=== PATIENT | female | born 1970 | race Caucasian/White ===

== ENCOUNTER → 2017-01-09 | Outpatient (CLI) | payer OTHER ==
[~2017-01-09] MED LIST: GADOBUTROL 10 ML VIAL IVP ONE
== END ==
LOC: FIMAGING 19:27
PROVIDERS: ATTEND Internal Medicine Endocrinology, Diabetes & Metabolism
DX: R94.02 Abnormal brain scan (principal); E22.1 Hyperprolactinemia
CPT/HCPCS: A9585

== ENCOUNTER 2017-02-13 17:22 | Emergency (ER) | payer OTHER ==
[2017-02-13 17:35] VITALS: RESP 16; TEMP 97.7
--- NOTE | 2017-02-13 17:38 | EDPHY ---
H & P Stated Complaint: left anterior CP, cramping rad to shoulders, after increasing seroqual dose Time Seen by Provider: 02/13/17 17:37 - Personal History LMP (Females 10-55): 8-14 Days Ago Current Tetanus/Diphtheria Vaccine: Yes Current Tetanus Diphtheria and Acellular Pertussis (TDAP): Yes Tetanus Vaccine Date: 2014 - Medical/Surgical History Hx Asthma: No Hx Chronic Respiratory Disease: No Hx Diabetes: No Hx Cardiac Disease: No Hx Renal Disease: No Hx Cirrhosis: No Hx Alcoholism: No Hx HIV/AIDS: No Hx Splenectomy or Spleen Trauma: No Other PMH: anemia, carpal tunnel, insomnia, fibromyalgia, hypothyroid, L3-L4 buldging disc, leukocytosis, migraines, scoliosis, sleep apnea, TMJ, nerve ablations for chronic abdominal pain, occipital nerve block for migraines, photophobia, puctal plugs, adrenal insufficiency, vitamin D deficiency, - Social History Smoking Status: Never smoked Constitutional: Initial Vital Signs Temperature (C) 36.5 C 02/13/17 17:32 Heart Rate 96 02/13/17 17:32 Respiratory Rate 16 02/13/17 17:32 Blood Pressure 151/76 H 02/13/17 17:32 O2 Sat (%) 96 02/13/17 17:32 O2 Delivery Mode Room Air Allergies/Adverse Reactions: hydrocodone Allergy (Severe, Verified 06/09/15 13:12) Rash peanut Allergy (Severe, Verified 06/09/15 13:12) Hives Penicillins Allergy (Severe, Verified 06/09/15 13:12) Rash gluten Allergy (Intermediate, Verified 06/09/15 13:12) clarithromycin Allergy (Verified 06/09/15 13:12) Home Medications: Medication Instructions Recorded Bepreve 1.5% 1 drop EACHEYE BID 11/08/14 Diclofenac Sodium 1% [Voltaren Gel 1 everette TP QID PRN 11/08/14 (*)] Gabapentin Enacarbil [Horizant] 600 mg PO TID 11/08/14 HYDROmorphone HCL [Dilaudid 4 mg 4 mg PO Q4 PRN 11/08/14 (*)] HYDROmorphone HCL [Dilaudid 4 mg 8 mg PO Q6 PRN 11/08/14 (*)] Herbals/Supplements -Info Only 1 ea PO DAILY 11/08/14 Ketorolac Tromethamine [Toradol 30 30 mg IVP WESA@09 11/08/14 mg/ml Inj (*)] Omeprazole [Prilosec 20 mg] 20 mg PO BID 11/08/14 Promethazine HCl [Phenergan 25mg 37.5 mg PO DAILY 11/08/14 (*)] cycloSPORINE 0.05% [Restasis Opht 1 drop EACHEYE BID 11/08/14 Drops(*)] Ibuprofen [Motrin (*)] 600 mg PO TID PRN #0 tab 11/09/14 ACTEMRA 05/03/15 Amitiza 05/03/15 Botox 05/03/15 Dymista Nasal [place] 05/03/15 Fetzima 05/03/15 Klor-Con 05/03/15 Ximena 06/09/15 Furosemide [Lasix] 20 mg PO DAILY #6 tab 06/09/15 Nucynta 50 MG (RX) 06/09/15 Potassium Cl [Klor-Con 20 meq (*)] 20 meq PO DAILY #5 tab 06/09/15 Restasis Opht Drops(RX) 06/09/15 SAVELLA 06/09/15 Ibuprofen [Motrin] 800 mg PO Q8 #20 tab 02/13/17 Medical Decision Making - Diagnostics Imaging Results: Imaging Impressions Chest X-Ray 02/13/17 17:57 Impression: No significant radiographic abnormality. Specifically, a source for chest pain is not identified. Imaging: I viewed and interpreted images myself ED Course/Re-evaluation: CHIEF COMPLAINT: Chest pain, elevated BP HISTORY OF PRESENT ILLNESS: The patient is a 46 y/o female complaining of chest pain since Sunday evening, 2 days ago, worsening today and associated with elevated BP. She has a history of several chronic pain and rheumatologic issues. She had an extensive cardiac work up 2 years ago for similar symptoms including a nuclear stress test and they ultimately attributed her pain to an inflammatory rheumatologic process. She describes her pain as "deep" and also "tight, cramping pain in the breast radiating out to my left shoulder" with some milder radiation to her right shoulder. She complains of additional fatigue , but denies significant dyspnea, fever, or other new symptoms. She was seen at the [facility] earlier today and referred to urgent care for elevated BP they thought might be caused by recently increasing her Seroquel dose. REVIEW OF SYSTEMS: A 10 point review of systems was performed and is negative with the exception of the elements mentioned in the history of present illness. PHYSICAL EXAM: HR, BP, O2 Sat, RR. Temp noted General Appearance: Alert, well hydrated, appropriate, and non-toxic appearing. Head: Atraumatic without scalp tenderness or obvious injury Eyes: Pupils equal, round, reactive to light and accommodation, EOMI, no trauma , no injection. Ears: Clear bilaterally, no perforation, normal landmarks Nose: Atraumatic, no rhinorrhea, clear. Throat: There is no erythema or exudates, no lesions, normal tonsils, mucus membranes moist. Neck: Supple, nontender, no lymphadenopathy. Respiratory: No retractions, no distress, no wheezes, and no accessory muscle use. Lungs are clear to auscultation bilaterally. Cardiovascular: Regular rate and rhythm, no murmurs, rubs, or gallops. Good capillary refill all extremities. Gastrointestinal: Abdomen is soft, nontender, non-distended, no masses, no rebound, no guarding, no peritoneal signs. Musculoskeletal: Normal active ROM of all extremities, atraumatic. Exquisite tenderness over left breast tissue. Neurological: Alert, appropriate, and interactive. Nonfocal neuro exam. Skin: No rashes, good turgor, no nodules on palpation. Past medical history: Chronic inflammatory condition poorly characterized, fibromyalgia, migraines, scoliosis, recurrent chest and abdominal pain, continuous narcotic dependency, hypothyroidism, chronic leukocytosis, MAY Past surgical history: Denies Family history: Father had CABG x4 at age 40 Social history: at bedside. Prior medical records reviewed including admission 11/08/14 for chest pain. DIAGNOSTICS/PROCEDURES/CRITICAL CARE TIME: The 12 lead EKG was interpreted by myself. Sinus rhythm. See hard copy and/or "tracemaster" electronic copy for interpretation. Chest x-ray: unremarkable DIFFERENTIAL DIAGNOSIS: The differential diagnosis for the patient's chest pain included but was not limited to costochondritis, rheumatologic process, myocardial ischemia, pulmonary embolus, chest wall pain, pleural inflammation, and pulmonary infectious causes. MEDICAL DECISION MAKING: This is a 46 y/o female with a history of chronic pain conditions presents with left upper chest tenderness worsening over the last two days. She has had extensive prior cardiac workup in the last 2 years that showed no evidence for cardiac cause of her pain. While she has a concerning family history of cardiac disease, her pain today is reproducible with palpation and consistent with prior episodes of costochondritis and other poorly characterized rheumatologic issues. We will still complete a work up to rule out cardiac causes. IV established. Labs drawn. Chest x-ray and EKG ordered. Reassessed patient and discussed work up. Labs, EKG, chest x-ray are unremarkable. Her BP is stable around 150 systolic. She will be discharged with ibuprofen and recommendation to follow up with her PCP for continued symptoms. Return precautions given. She is comfortable with this plan. - Data Points Laboratory Results: Laboratory Results 02/13/17 18:15 02/13/17 18:15 02/13/17 02/13/17 02/13/17 18:15 18:15 18:15 WBC 11.33 10^3/uL H 10^3/uL (3.80-9.50) RBC 4.43 10^6/uL 10^6/uL (4.18-5.33) Hgb 12.5 g/dL L g/dL (12.6-16.3) Hct 37.6 % L % (38.0-47.0) MCV 84.9 fL fL (81.5-99.8) MCH 28.2 pg pg (27.9-34.1) MCHC 33.2 g/dL g/dL (32.4-36.7) RDW 13.7 % % (11.5-15.2) Plt Count 355 10^3/uL 10^3/uL (150-400) MPV 9.5 fL fL (8.7-11.7) Neut % (Auto) 58.9 % % (39.3-74.2) Lymph % (Auto) 26.9 % % (15.0-45.0) [place] % (Auto) 8.3 % % (4.5-13.0) Eos % (Auto) 4.9 % % (0.6-7.6) Baso % (Auto) 0.7 % % (0.3-1.7) Nucleat RBC Rel Count 0.0 % % (0.0-0.2) Absolute Neuts (auto) 6.67 10^3/uL H 10^3/uL (1.70-6.50) Absolute Lymphs (auto) 3.05 10^3/uL H 10^3/uL (1.00-3.00) Absolute Monos (auto) 0.94 10^3/uL H 10^3/uL (0.30-0.80) Absolute Eos (auto) 0.56 10^3/uL H 10^3/uL (0.03-0.40) Absolute Basos (auto) 0.08 10^3/uL 10^3/uL (0.02-0.10) Absolute Nucleated RBC 0.00 10^3/uL 10^3/uL (0-0.01) Immature Gran % 0.3 % % (0.0-1.1) Immature Gran # 0.03 10^3/uL 10^3/uL (0.00-0.10) D-Dimer < 0.27 ug/mLFEU ug/mLFEU (0.00-0.50) Sodium 136 mEq/L mEq/L (134-144) Potassium 4.0 mEq/L mEq/L (3.5-5.2) Chloride 104 mEq/L mEq/L (97-110) Carbon Dioxide 23 mEq/l mEq/l (22-31) Anion Gap 9 mEq/L mEq/L (8-16) BUN 10 mg/dL mg/dL (7-23) Creatinine 0.8 mg/dL mg/dL (0.6-1.0) Estimated GFR > 60 Glucose 81 mg/dL mg/dL (70-100) Calcium 9.1 mg/dL mg/dL (8.5-10.4) Troponin I Pending NT-Pro-B Natriuret Pep Pending Departure - Departure Disposition: Home, Routine, Self-Care Clinical Impression: Chest wall pain Condition: Good Instructions: Chest Wall Pain (ED) Additional Instructions: Take 800mg ibuprofen every 6-8 hours for the next week. Follow up with your primary care provider for unimproved symptoms over the next week. Referrals: Isabelle Pate MD [Primary Care Provider] - As per Instructions Report Scribed for: Sin Vázquez Report Scribed by: Mikayla Mitchell Date of Report: 02/13/17 Time of Report: 18:34
[2017-02-13 18:28] LABS: % IMMATURE GRANULYOCYTES 0.3 % (0.0-1.1); ABSOLUTE IMMATURE GRANULOCYTES 0.03 10^3/uL (0.00-0.10); ADD DIFF? NO; ADD MORPH? NO; ADD SCAN? NO; ATYPICAL LYMPHOCYTE FLAG 0 (0-99); FRAGMENT RBC FLAG 0 (0-99); HEMATOCRIT 37.6 % (38.0-47.0); HEMOGLOBIN 12.5 g/dL (12.6-16.3); LEFT SHIFT FLG 0 (0-99); LIPEMIA HEMOLYSIS FLAG 80 (0-99); MEAN CELL HEMOGLOBIN 28.2 pg (27.9-34.1); MEAN CELL HEMOGLOBIN CONCENTR. 33.2 g/dL (32.4-36.7); MEAN CELL VOLUME 84.9 fL (81.5-99.8); MEAN PLATELET VOLUME 9.5 fL (8.7-11.7); PLATELET CLUMPS FLAG 0 (0-99); PLATELET COUNT 355 10^3/uL (150-400); RED BLOOD CELL COUNT 4.43 10^6/uL (4.18-5.33); RED CELL DISTRIBUTION WIDTH 13.7 % (11.5-15.2)
[2017-02-13 18:39] VITALS: BP 158/81; PULSE 86; O2SAT 98
[2017-02-13 18:41] LABS: ANION GAP 9 mEq/L (8-16); CALCIUM 9.1 mg/dL (8.5-10.4); CARBON DIOXIDE 23 mEq/l (22-31); CHLORIDE 104 mEq/L (97-110); CREATININE 0.8 mg/dL (0.6-1.0); GLOMERULAR FILTRATION RATE > 60; GLUCOSE 81 mg/dL (70-100); SODIUM 136 mEq/L (134-144)
[2017-02-13 18:54] LABS: TROPONIN I < 0.012 ng/mL (0-0.034)
== END 2017-02-13 19:24 | disposition home or self-care (01) ==
DX: R07.89 Other chest pain (principal); Z91.010 Allergy to peanuts

== ENCOUNTER 2017-06-07 17:57 | Emergency (ER) | payer OTHER ==
--- NOTE | 2017-06-07 18:18 | EDPHY ---
H & P Smoking Status: Never smoked Time Seen by Provider: 06/07/17 18:05 HPI/ROS: CHIEF COMPLAINT: Mental health evaluation HISTORY OF PRESENT ILLNESS: History from patient and . She has bipolar disorder which usually manifests itself is yovani. She was been prescribed Geodon but it was making her listless so she was prescribed Trintellix starting on Sunday. For the past couple days she has become more upset and today since 3:00 p.m. started having suicidal ideation. No plan. No actual injury or overdose. Presents voluntarily for evaluation. REVIEW OF SYSTEMS: Eye: no change in vision ENT: no sore throat Cardiac: no chest pain or syncope Pulmonary: no cough or SOB Abdomen: no vomiting, diarrhea, abdominal pain Musculoskeletal: Chronic spine pain from fibromyalgia unchanged Skin: no rash Neuro: no headache, has a history of migraines but not symptomatic right now Constitutional: no fever : no urinary symptoms A comprehensive 10 point review of systems is otherwise negative aside from elements mentioned in the history of present illness. PAST MEDICAL HISTORY: Includes Migraines, fibromyalgia, bipolar disorder. Social history: No tobacco or alcohol, , here with . General Appearance: Alert and conversant, cooperative. Eyes: No scleral icterus. Extraocular motion intact. ENT, Mouth: Normal mucous membranes. Respiratory: Normal respiratory effort, breath sounds equal, lungs are clear to auscultation. Cardiovascular: Regular rate and rhythm. Gastrointestinal: Abdomen is soft and non tender. Neurological: Alert and oriented x3. Normally conversant. Face symmetric, normal movement and sensation in all extremities. Skin: Warm and dry, no rashes. Musculoskeletal: No peripheral edema and no joint swelling. Psychiatric: Tearful, admits to suicidal ideation but does not have a plan, contracts for safety. Emergency Department course/MDM: Planning for screening psychiatric labs and psychiatric evaluation. She says that she feels like her "mind has been hijacked and I am a passenger. " 2100: Signed out to [facility] with evaluation in progress. (Ken Reyes) Constitutional: Initial Vital Signs Temperature (C) 37.0 C 06/07/17 18:00 Heart Rate 107 H 06/07/17 18:00 Respiratory Rate 16 06/07/17 18:00 Blood Pressure 178/85 H 06/07/17 18:00 O2 Sat (%) 98 06/07/17 18:00 O2 Delivery Mode Room Air Allergies/Adverse Reactions: hydrocodone Allergy (Severe, Verified 06/09/15 13:12) Rash peanut Allergy (Severe, Verified 06/09/15 13:12) Hives Penicillins Allergy (Severe, Verified 06/09/15 13:12) Rash gluten Allergy (Intermediate, Verified 06/09/15 13:12) clarithromycin Allergy (Verified 06/09/15 13:12) lamotrigine Allergy (Verified 06/07/17 23:58) lisinopril Allergy (Verified 06/07/17 23:58) nut - unspecified Allergy (Verified 06/07/17 23:58) Home Medications: Medication Instructions Recorded Herbals/Supplements -Info Only 1 ea PO DAILY 11/08/14 Omeprazole [Prilosec 20 mg] 20 mg PO DAILY 11/08/14 Potassium Cl [Klor-Con 20 meq (*)] 20 meq PO DAILY #5 tab 06/09/15 .Actemra 126 mg INJ .BI WEEKLY 06/07/17 Azelastine/Fluticasone [Dymista 1 spray NS BID 06/07/17 Nasal [place]] Benztropine Mesylate [Cogentin 0.5 mg PO HS 06/07/17 (RX)] Benztropine Mesylate [Cogentin 1 mg PO DAILY 06/07/17 (RX)] Clindamycin Phos/Benzoyl Perox 1 everette TP BID 06/07/17 [Clindamycin-Benzoyl Perox Gel] Dexamethasone 0.1% [Dexamethasone 1 - 2 drops EACHEAR PRN PRN 06/07/17 0.1% (*)] Diclofenac Sodium 1% [Voltaren Gel 8 gm TP QID 06/07/17 (*)] Gabapentin Enacarbil [Horizant] 1,800 mg PO HS 06/07/17 Ketorolac Tromethamine [Toradol 30 30 mg INJ .UP TO TWICE WEEKLY PRN 06/07/17 mg/ml Inj (*)] Naproxen Sodium [Aleve 220 MG (*)] 4 tab PO .2-3 X WEEKLY PRN 06/07/17 Prazosin HCl [Minipress] 4 mg PO HS 06/07/17 Promethazine HCl [Phenergan 25mg 1.5 tab PO DAILY 06/07/17 (*)] Sumatriptan Succinate [Zembrace 3 mg SQ PRN PRN 06/07/17 [place]] Tapentadol HCl [Nucynta] 100 mg PO Q6 06/07/17 Ziprasidone HCl [Geodon 20MG (*)] 20 mg PO BID 06/07/17 amLODIPine BESYLATE [Norvasc 5 mg 5 mg PO DAILY 06/07/17 (*)] busPIRone [Buspar (*)] 5 mg PO TID 06/07/17 Medical Decision Making ED Course/Re-evaluation: 0558AM: Patient has been accepted at [facility] by Dr. Hand, EMTALA filled out. Appropriate transfer will be set up. (Sandeep Zhang) Other Provider: I assumed care of this patient from Dr. Reyes at 9:00 p.m.. I was contacted by the mental health team at 10:00 p.m.. She is being placed on a mental health M1 hold, which I signed in conjunction with the blood bank coordinator. Placement is being sought. Her care will be transferred to Dr. Zhang at 11:00 p.m.. Patient requested Toradol for her abdominal migraines. She was given an injection of intramuscular Toradol. (Tianna Handy) - Data Points Laboratory Results: Laboratory Results 06/07/17 18:20 06/07/17 18:20 06/07/17 06/07/17 06/07/17 18:20 18:20 18:20 WBC RBC Hgb Hct MCV MCH MCHC RDW Plt Count MPV Neut % (Auto) Lymph % (Auto) [place] % (Auto) Eos % (Auto) Baso % (Auto) Nucleat RBC Rel Count Absolute Neuts (auto) Absolute Lymphs (auto) Absolute Monos (auto) Absolute Eos (auto) Absolute Basos (auto) Absolute Nucleated RBC Immature Gran % Immature Gran # Sodium 140 mEq/L mEq/L (134-144) Potassium 4.3 mEq/L mEq/L (3.5-5.2) Chloride 104 mEq/L mEq/L (97-110) Carbon Dioxide 22 mEq/l mEq/l (22-31) Anion Gap 14 mEq/L mEq/L (8-16) BUN 14 mg/dL mg/dL (7-23) Creatinine 0.9 mg/dL mg/dL (0.6-1.0) Estimated GFR > 60 Glucose 107 mg/dL H mg/dL (70-100) Calcium 9.6 mg/dL mg/dL (8.5-10.4) Beta HCG, Qual NEGATIVE Salicylates < 1.0 mg/dL L mg/dL (2.0-20.0) Urine Opiates Screen NEGATIVE (NEGATIVE) Acetaminophen < 10 mcg/mL L mcg/mL (10-30) Urine Barbiturates NEGATIVE (NEGATIVE) Ur Phencyclidine Scrn NEGATIVE (NEGATIVE) Ur Amphetamine Screen NEGATIVE (NEGATIVE) U Benzodiazepines Scrn NEGATIVE (NEGATIVE) Urine Cocaine Screen NEGATIVE (NEGATIVE) U Marijuana (THC) Screen NEGATIVE (NEGATIVE) Ethyl Alcohol < 10 mg/dL mg/dL (0-10) 06/07/17 18:20 WBC 8.77 10^3/uL 10^3/uL (3.80-9.50) RBC 5.14 10^6/uL 10^6/uL (4.18-5.33) Hgb 14.7 g/dL g/dL (12.6-16.3) Hct 42.9 % % (38.0-47.0) MCV 83.5 fL fL (81.5-99.8) MCH 28.6 pg pg (27.9-34.1) MCHC 34.3 g/dL g/dL (32.4-36.7) RDW 13.6 % % (11.5-15.2) Plt Count 371 10^3/uL 10^3/uL (150-400) MPV 9.4 fL fL (8.7-11.7) Neut % (Auto) 64.0 % % (39.3-74.2) Lymph % (Auto) 23.0 % % (15.0-45.0) [place] % (Auto) 6.4 % % (4.5-13.0) Eos % (Auto) 5.4 % % (0.6-7.6) Baso % (Auto) 1.1 % % (0.3-1.7) Nucleat RBC Rel Count 0.0 % % (0.0-0.2) Absolute Neuts (auto) 5.61 10^3/uL 10^3/uL (1.70-6.50) Absolute Lymphs (auto) 2.02 10^3/uL 10^3/uL (1.00-3.00) Absolute Monos (auto) 0.56 10^3/uL 10^3/uL (0.30-0.80) Absolute Eos (auto) 0.47 10^3/uL H 10^3/uL (0.03-0.40) Absolute Basos (auto) 0.10 10^3/uL 10^3/uL (0.02-0.10) Absolute Nucleated RBC 0.00 10^3/uL 10^3/uL (0-0.01) Immature Gran % 0.1 % % (0.0-1.1) Immature Gran # 0.01 10^3/uL 10^3/uL (0.00-0.10) Sodium Potassium Chloride Carbon Dioxide Anion Gap BUN Creatinine Estimated GFR Glucose Calcium Beta HCG, Qual Salicylates Urine Opiates Screen Acetaminophen Urine Barbiturates Ur Phencyclidine Scrn Ur Amphetamine Screen U Benzodiazepines Scrn Urine Cocaine Screen U Marijuana (THC) Screen Ethyl Alcohol Medications Given: Discontinued Medications Benztropine Mesylate (Cogentin) 0.5 mg PO EDNOW ONE Stop: 06/07/17 23:16 Last Admin: 06/07/17 23:31 Dose: 0.5 mg Buspirone HCl (Buspar) 5 mg PO EDNOW ONE Stop: 06/07/17 23:16 Last Admin: 06/07/17 23:32 Dose: 5 mg Ketorolac Tromethamine (Toradol) 15 mg IVP EDNOW ONE Stop: 06/07/17 21:37 Last Admin: 06/07/17 21:53 Dose: Not Given Ketorolac Tromethamine (Toradol) 60 mg IM EDNOW ONE Stop: 06/07/17 21:42 Last Admin: 06/07/17 21:50 Dose: 30 mg Lorazepam (Ativan) 1 mg PO EDNOW ONE Stop: 06/08/17 05:14 Last Admin: 06/08/17 05:16 Dose: 1 mg Miscellaneous Medication (Non-Formulary) 2 ea PO EDNOW ONE Stop: 06/07/17 23:16 Last Admin: 06/07/17 23:32 Dose: 2 mg Miscellaneous Medication (Non-Formulary) 1 ea PO EDNOW ONE Stop: 06/07/17 23:16 Last Admin: 06/07/17 23:31 Dose: 100 mg Miscellaneous Medication (Non-Formulary) 3 ea PO EDNOW ONE Stop: 06/07/17 23:31 Last Admin: 06/07/17 23:33 Dose: 600 mg Ziprasidone (Geodon) 20 mg PO EDNOW ONE Stop: 06/07/17 23:16 Last Admin: 06/07/17 23:32 Dose: 20 mg Departure - Departure Disposition: [facility] IP Clinical Impression: Fibromyalgia, Bipolar 1 disorder Instructions: Bipolar Disorder (ED), Suicide Prevention for Adults (ED) Referrals: Sandeep Combs MD [Primary Care Provider] - As per Instructions
[2017-06-07 18:30] LABS: % IMMATURE GRANULYOCYTES 0.1 % (0.0-1.1); ABSOLUTE IMMATURE GRANULOCYTES 0.01 10^3/uL (0.00-0.10); ADD DIFF? NO; ADD MORPH? NO; ADD SCAN? NO; ATYPICAL LYMPHOCYTE FLAG 0 (0-99); FRAGMENT RBC FLAG 0 (0-99); HEMATOCRIT 42.9 % (38.0-47.0); HEMOGLOBIN 14.7 g/dL (12.6-16.3); LEFT SHIFT FLG 0 (0-99); LIPEMIA HEMOLYSIS FLAG 90 (0-99); MEAN CELL HEMOGLOBIN 28.6 pg (27.9-34.1); MEAN CELL HEMOGLOBIN CONCENTR. 34.3 g/dL (32.4-36.7); MEAN CELL VOLUME 83.5 fL (81.5-99.8); MEAN PLATELET VOLUME 9.4 fL (8.7-11.7); PLATELET CLUMPS FLAG 0 (0-99); PLATELET COUNT 371 10^3/uL (150-400); RED BLOOD CELL COUNT 5.14 10^6/uL (4.18-5.33); RED CELL DISTRIBUTION WIDTH 13.6 % (11.5-15.2)
[2017-06-07 18:44] LABS: ANION GAP 14 mEq/L (8-16); CALCIUM 9.6 mg/dL (8.5-10.4); CARBON DIOXIDE 22 mEq/l (22-31); CHLORIDE 104 mEq/L (97-110); CREATININE 0.9 mg/dL (0.6-1.0); ETHANOL SERUM < 10 mg/dL (0-10); GLOMERULAR FILTRATION RATE > 60; GLUCOSE 107 mg/dL (70-100); POTASSIUM 4.3 mEq/L (3.5-5.2); SALICYLATE < 1.0 mg/dL (2.0-20.0); SODIUM 140 mEq/L (134-144)
[2017-06-07] MEDS ORDERED: KETOROLAC 30 MG/1 ML SDV IVP ONE (21:36)
[2017-06-07] MEDS ORDERED: KETOROLAC 30 MG/1 ML SDV IM ONE (21:41)
[2017-06-07] MEDS ORDERED: PRAZOSIN 2 MG PO ONE (23:15)
[2017-06-07] MEDS ORDERED: BENZTROPINE MESYLATE 1 MG TAB PO SCH (23:15)
[2017-06-07] MEDS ORDERED: TAPENTADOL HCL 50 MG TAB PO ONE (23:15)
[2017-06-07] MEDS ORDERED: ZIPRASIDONE HCL 20 MG CAP PO ONE (23:15)
[2017-06-07] MEDS ORDERED: PRAZOSIN HCL 1 MG CAP PO ONE (23:15)
[2017-06-07] MEDS ORDERED: busPIRone 5 MG TAB PO ONE (23:15)
[2017-06-07] MEDS ORDERED: NUCYNTA 100 MG PO ONE (23:15)
[2017-06-07] MEDS ORDERED: BENZTROPINE MESYLATE 1 MG TAB PO ONE (23:15)
[2017-06-07] MEDS ORDERED: HORIZANT 600 MG PO ONE ×2 (23:30)
[2017-06-08] MEDS ORDERED: LORazepam 1 MG TAB PO ONE (05:13)
[2017-06-08 07:57] VITALS: RESP 16
[2017-06-08] MEDS ORDERED: TAPENTADOL HCL 50 MG TAB PO ONE (09:15)
[2017-06-08] MEDS ORDERED: busPIRone 5 MG TAB PO ONE (09:16)
[2017-06-08] MEDS ORDERED: ZIPRASIDONE HCL 20 MG CAP PO ONE (09:16)
[2017-06-08] MEDS ORDERED: BENZTROPINE MESYLATE 1 MG TAB PO ONE (09:17)
[2017-06-08] MEDS ORDERED: NUCYNTA 100 MG PO ONE (09:30)
[2017-06-08 12:02] VITALS: BP 127/82; PULSE 95; TEMP 97.2; O2SAT 94
== END 2017-06-08 12:08 ==
DX: F31.9 Bipolar disorder, unspecified (principal)
CPT/HCPCS: 80305; G0480; J1885